=== PATIENT | male | born 1970 | race African-American/Black ===

== ENCOUNTER 2019-08-06 13:49 | Emergency (ER) | payer SELFPAY ==
[~2019-08-06] VITALS: Ht 170.2 cm; Wt 65.0 kg
[2019-08-06] MEDS ORDERED: BACITRACIN ZINC OINT UDPKT TOP ONE (14:00)
[2019-08-06] MEDS ORDERED: ACETAMINOPHEN 325MG TABLET PO ONE (14:00)
[2019-08-06] MEDS ORDERED: KETOROLAC 30MG/ML VIAL IM ONE (14:45)
[2019-08-06 15:24] VITALS: BP 124/86
[2019-08-06] MEDS ORDERED: LIDOCAINE HCL 1% 20ML VIAL (Pyxis) INJ INFIL ONE (15:45)
== END 2019-08-06 16:48 | disposition home or self-care (01) ==
LOC: ER 13:49
DX: S41.112A Laceration without foreign body of left upper arm, initial encounter (principal); W26.8XXA Contact with other sharp object(s), not elsewhere classified, initial encounter; Y93.89 Activity, other specified; Y92.89 Other specified places as the place of occurrence of the external cause
CPT/HCPCS: 12004; 96372; 99283; J1885; J3490

== ENCOUNTER 2020-03-22 13:53 | Emergency (ER) | payer MEDICAID, OTHER ==
[~2020-03-22] VITALS: Ht 182.9 cm; Wt 82.0 kg
[2020-03-22 14:01] VITALS: BP 107/59
[2020-03-22] MEDS ORDERED: ACETAMINOPHEN WITH CODEINE 300/30MG TABLET PO ONE (15:00)
== END 2020-03-22 17:24 | disposition home or self-care (01) ==
LOC: ER 13:53
DX: S16.1XXA Strain of muscle, fascia and tendon at neck level, initial encounter (principal); S50.01XA Contusion of right elbow, initial encounter; V49.59XA Passenger injured in collision with other motor vehicles in traffic accident, initial encounter; Y93.89 Activity, other specified; Y92.488 Other paved roadways as the place of occurrence of the external cause
CPT/HCPCS: 73080; 99284

== ENCOUNTER 2021-08-29 13:38 | Inpatient (IN) | payer MEDICAID ==
[~2021-08-29] VITALS: Ht 170.2 cm; Wt 81.6 kg
[2021-08-29] MEDS ORDERED: KETOROLAC 30MG/ML VIAL IV STA (14:01)
[2021-08-29] MEDS ORDERED: SODIUM CHLORIDE 0.9% 1,000 ML IV ONE (14:15)
[2021-08-29 14:25] LABS: CLARITY URINE CLEAR (CLEAR); COLOR URINE YELLOW (YELLOW); KETONES URINE TRACE (NEGATIVE); LEUKOCYTE ESTERASE URINE 1+ (NEGATIVE); NITRITE URINE NEGATIVE (NEGATIVE); OCCULT BLOOD URINE 2+ (NEGATIVE); PH URINE 5.5 (4.5-8.0); PROTEIN URINE 1+ (NEGATIVE); SPECIFIC GRAVITY URINE 1.023 (1.005-1.030)
[2021-08-29 14:41] LABS: *AMPHETAMINES SCREEN URINE NEGATIVE (NEGATIVE); *BARBITURATES SCREEN URINE NEGATIVE (NEGATIVE); *BENZODIAZEPINES SCREEN URINE NEGATIVE (NEGATIVE); *COCAINE SCREEN URINE PRESUMTIVE POSITIVE (NEGATIVE); CANNABINOID URINE SCREEN PRESUMTIVE POSITIVE (NEGATIVE); METHADONE URINE SCREEN NEGATIVE (NEGATIVE); OPIATES URINE SCREEN NEGATIVE (NEGATIVE)
[2021-08-29 14:41] LABS: BASOPHILS % 0.5 % (0.0-2.0); HEMATOCRIT. 42.5 % (42.0-52.0); HEMOGLOBIN. 13.7 g/dL (14.0-18.0); LYMPHOCYTES % 7.1 % (20.0-50.0); MEAN CORPUSCULAR VOLUME 90.1 fL (80.0-94.0); MONOCYTES % 13.5 % (2.0-8.0); NEUTROPHILS % 78.9 % (40.0-76.0); PLATELET 363 x1000/uL (130-400); RED BLOOD CELL COUNT 4.72 mill/uL (4.7-6.1); RED CELL DISTRIBUTION WIDTH 13.9 % (11.6-14.6)
[2021-08-29 14:42] LABS: PHENCYCLIDINE URINE SCREEN PRESUMTIVE POSITIVE (NEGATIVE)
[2021-08-29 14:46] LABS: CHLORIDE 100 mEq/L (98-107)
[2021-08-29] MEDS ORDERED: SODIUM CHLORIDE 0.9% 1000ML BAG (SEPSIS BOLUS) IV ONE (15:00)
[2021-08-29] MEDS ORDERED: PIPERACILLIN/TAZ 3.375G PREMIX 50 ML IV ONE (15:00)
[2021-08-29] MEDS ORDERED: VANCOMYCIN 1 G PREMIX 200 ML IV ONE (15:00)
[2021-08-29] MEDS ORDERED: LORAZEPAM 0.5MG TABLET PO PRN (17:00)
[2021-08-29] MEDS ORDERED: LEVOFLOXACIN 500MG PREMIX 100 ML IV SCH (17:15)
[2021-08-29] MEDS ORDERED: PIPERACILLIN/TAZOBACTAM 3.375GM/50ML PREMIX IV SCH (20:00)
[2021-08-29 20:59] VITALS: BP 95/57
[2021-08-29] MEDS ORDERED: PIPERACILLIN/TAZ 3.375G PREMIX 50 ML IV NR (22:00)
[2021-08-29] MEDS ORDERED: NITROGLYCERIN 0.4MG TABLET SL SL NR (23:45)
[2021-08-29] MEDS ORDERED: NALOXONE HCL 0.4MG/ML VIAL IV PRN (23:45)
[2021-08-30] VITALS: BP 103/63
[2021-08-30] MEDS: SODIUM CHLORIDE 0.9% 1,000 ML IV SCH ×3 (00:06→13:04)
[2021-08-30 04:00] VITALS: BP 95/53
[2021-08-30] MEDS: PIPERACILLIN/TAZOBACTAM 3.375G in DEXT 5% WATER 50ML IV SCH ×3 (05:10→20:51)
[2021-08-30 06:24] LABS: HEMATOCRIT. 36.3 % (42.0-52.0); HEMOGLOBIN. 11.7 g/dL (14.0-18.0); MEAN CORPUSCULAR VOLUME 89.7 fL (80.0-94.0); MEAN PLATELET VOLUME 8.1 fl (7.4-10.4); PLATELET 298 x1000/uL (130-400); RED BLOOD CELL COUNT 4.04 mill/uL (4.7-6.1); RED CELL DISTRIBUTION WIDTH 13.6 % (11.6-14.6)
[2021-08-30 06:25] LABS: CHLORIDE 106 mEq/L (98-107)
[2021-08-30 08:06] VITALS: BP 90/55
[2021-08-30 08:16] LABS: HEPATITIS B SURFACE ANTIGEN NEGATIVE
[2021-08-30] MEDS ORDERED: NICOTINE 21MG PATCH TD SCH (12:30)
[2021-08-30 12:40] VITALS: BP 100/60
[2021-08-30] MEDS: VANCOMYCIN 1 G PREMIX 200 ML IV SCH ×2 (13:03→20:51)
[2021-08-30] MEDS: OXYCODONE HCL 5MG TABLET PO PRN ×2 (13:09→23:06)
[2021-08-30] MEDS: NICOTINE 14MG PATCH TD SCH (13:22)
[2021-08-30 13:29] LABS: PLATELET ESTIMATE NORMAL
[2021-08-30] MEDS: ACETAMINOPHEN 325MG TABLET PO PRN (15:19)
[2021-08-30] MEDS ORDERED: LACTULOSE 20G/30ML UDC PO PRN (16:00)
[2021-08-30] MEDS ORDERED: DOCUSATE SODIUM 100MG CAPSULE PO PRN (16:00)
[2021-08-30 16:03] VITALS: BP 100/54
[2021-08-30] MEDS ORDERED: LEVOFLOXACIN 500MG PREMIX 100 ML IV SCH (18:00)
[2021-08-30 20:00] VITALS: BP 97/40
[2021-08-31] VITALS: BP 100/53
[2021-08-31 04:00] VITALS: BP 107/55
[2021-08-31] MEDS: PIPERACILLIN/TAZOBACTAM 3.375G in DEXT 5% WATER 50ML IV SCH (05:05)
[2021-08-31 07:12] LABS: BASOPHILS % 0.5 % (0.0-2.0); EOSINOPHILS % 0.7 % (0.0-5.0); HEMATOCRIT. 35.3 % (42.0-52.0); HEMOGLOBIN. 11.7 g/dL (14.0-18.0); LYMPHOCYTES % 9.3 % (20.0-50.0); MEAN CORPUSCULAR VOLUME 90.9 fL (80.0-94.0); MEAN PLATELET VOLUME 8.2 fl (7.4-10.4); NEUTROPHILS % 77.5 % (40.0-76.0); PLATELET 304 x1000/uL (130-400); RED BLOOD CELL COUNT 3.89 mill/uL (4.7-6.1); RED CELL DISTRIBUTION WIDTH 13.6 % (11.6-14.6)
[2021-08-31 07:14] LABS: CHLORIDE 106 mEq/L (98-107)
[2021-08-31 08:12] VITALS: BP 136/61
[2021-08-31] MEDS: ACETAMINOPHEN 325MG TABLET PO PRN (08:18)
[2021-08-31] MEDS: VANCOMYCIN 1 G PREMIX 200 ML IV SCH (08:18)
[2021-08-31] MEDS: NICOTINE 14MG PATCH TD SCH (08:19)
[2021-08-31] MEDS ORDERED: LEVOFLOXACIN 500MG PREMIX 100 ML IV SCH (11:00)
[2021-08-31] MEDS: OXYCODONE HCL 5MG TABLET PO PRN (11:11)
[2021-08-31] MEDS ORDERED: CEFTRIAXONE 2 G PREMIX 50 ML IV SCH (12:00)
[2021-08-31 12:26] VITALS: BP 96/55
[2021-08-31] MEDS: DOXYCYCLINE HYCLATE 100MG CAPSULE PO SCH (13:47)
[2021-08-31] MEDS ORDERED: CEFTRIAXONE 2 G in DEXTROSE 5% WATER 50 ML IV SCH (15:00)
[2021-08-31 16:20] VITALS: BP 95/50
[2021-08-31 20:00] VITALS: BP 99/68
[2021-09-01] VITALS: BP 115/58
[2021-09-01 05:00] VITALS: BP 121/79
[2021-09-01] MEDS: DOXYCYCLINE HYCLATE 100MG CAPSULE PO SCH (06:04)
[2021-09-01] MEDS: OXYCODONE HCL 5MG TABLET PO PRN (06:08)
[2021-09-01 07:11] LABS: CHLORIDE 103 mEq/L (98-107)
[2021-09-01 08:00] VITALS: BP 102/62
[2021-09-01] MEDS: NICOTINE 14MG PATCH TD SCH (08:30)
[2021-09-01] MEDS ORDERED: DOXY100C5 MT (09:42)
[2021-09-01] MEDS ORDERED: NICO-681 TD (09:42)
[2021-09-01] MEDS ORDERED: CEPH500C2 MT (09:42)
[2021-09-01 10:59] VITALS: BP 105/71
[2021-09-03 07:08] LABS: HIV SCREEN 4G Non Reactive (Non Reactive)
== END 2021-09-01 11:25 | disposition home or self-care (01) | DRG 720 ==
LOC: ER 13:38 → 8WST 16:47 → EDBEDREQTM 16:58 → EDBEDREQ 16:58 → ENRESERV 20:12
PROVIDERS: ADMIT Internal Medicine; ATTEND Internal Medicine
DX: A41.51 Sepsis due to Escherichia coli [E. coli] (principal); F12.90 Cannabis use, unspecified, uncomplicated; F14.90 Cocaine use, unspecified, uncomplicated; R65.20 Severe sepsis without septic shock; N45.1 Epididymitis; N39.0 Urinary tract infection, site not specified; F17.210 Nicotine dependence, cigarettes, uncomplicated; F16.90 Hallucinogen use, unspecified, uncomplicated
CPT/HCPCS: 36415; 71045; 74177; 76870; 80048; 80053; 80202; 80305; 81003; 83036; 83605; 84145; 84484; 85025; 86705; 86709; 86803; 87077; 87186; 87340; 87389; 87491; 87591; 93005; 93976; 99291; J0696; J1885; J1956; J2543; J3370; J7030; J7040; J7060

== ENCOUNTER 2023-01-27 11:18 | Emergency (ER) | payer MEDICAID ==
[~2023-01-27] VITALS: Ht 167.6 cm; Wt 82.0 kg
[~2023-01-27 11:18] MED LIST: CEPH500C2 MT; DOXY100C5 MT; NICO-681 TD
[2023-01-27 11:24] VITALS: BP 132/88
[2023-01-27] MEDS ORDERED: TETANUS, DIPHTHERIA, PERTUSSIS VAC/PF 0.5ML (>10YR OLD) IM ONE (14:00)
[2023-01-27] MEDS ORDERED: BACITRACIN ZINC OINT UDPKT TOP ONE (14:45)
[2023-01-27] MEDS ORDERED: AMOX1TAB16 MT (15:14)
[2023-01-27] MEDS ORDERED: NEOM1PAC6 TP (15:14)
== END 2023-01-27 16:11 | disposition home or self-care (01) ==
LOC: ER 11:18
DX: S61.451A Open bite of right hand, initial encounter (principal); S61.452A Open bite of left hand, initial encounter; Z59.00 Homelessness unspecified; W54.0XXA Bitten by dog, initial encounter; Y93.89 Activity, other specified; Y92.89 Other specified places as the place of occurrence of the external cause; Y99.8 Other external cause status
CPT/HCPCS: 73130; 90471; 90715; 99283

== ENCOUNTER 2024-04-28 11:17 | Emergency (ER) | payer MEDICAID ==
[~2024-04-28] VITALS: Ht 167.6 cm; Wt 75.0 kg
[~2024-04-28 11:17] MED LIST changes: +AMOX1TAB16 MT; +NEOM1PAC6 TP
[2024-04-28 11:19] VITALS: O2SAT 99
[2024-04-28] MEDS: ACETAMINOPHEN 500MG TABLET PO ONE (13:24)
[2024-04-28] MEDS ORDERED: TOPUD MT (15:22)
[2024-04-28] MEDS ORDERED: NAPR-1176 MT (15:22)
[2024-04-28 15:46] VITALS: BP 143/90; PULSE 68; RESP 18; TEMP 98.2
== END 2024-04-28 16:06 | disposition home or self-care (01) ==
LOC: ER 11:17
DX: S09.90XA Unspecified injury of head, initial encounter (principal); F14.10 Cocaine abuse, uncomplicated; Z79.899 Other long term (current) drug therapy; W18.30XA Fall on same level, unspecified, initial encounter; Y93.89 Activity, other specified; Y92.89 Other specified places as the place of occurrence of the external cause; Y99.8 Other external cause status
CPT/HCPCS: 99284